=== PATIENT | male | born 1965 | race Caucasian/White ===

== ENCOUNTER 2019-06-19 01:41 | Inpatient (IN) | payer SELFPAY ==
[2019-06-19] MEDS ORDERED: RIVAROXABAN 10 MG TABLET PO ONE (01:51)
[2019-06-19] MEDS ORDERED: DILTIAZEM HCL/D5W 125 MG/125 ML RTUINJ IV PRN (01:51)
--- NOTE | 2019-06-19 01:55 | ER Document Report ---
ED General - General Stated Complaint: HEART PALPITATIONS Time Seen by Provider: 06/19/19 01:50 Primary Care Provider: KALPESH JOHNSON [Primary Care Provider] - Follow up as needed - HPI Notes: Patient is a 54-year-old male that presents to the emergency department for chief complaint of palpitations. Patient states at 1135 he felt his heart skip a few beats and then begin beating very fast. He was at rest when this happened. He was diagnosed with atrial fibrillation in April 2019. He was wearing a Holter monitor this evening and states that he was called by [facility] and the Holter monitor company telling him that his heart rate was too fast and he needed to call EMS. Patient reported some diaphoresis with the heart racing but denied any associated chest pain, shortness of breath or near syncope. EMS administered 25 mg IV Cardizem and patient states he is currently feeling much better. He lives in [facility] and drove in today, he states he was nervous about taking his home Xarelto while driving because previous blood thinners had made him feel tired. He has not had his Xarelto in 2 or 3 days. Patient also states that he did not take his metoprolol 25 mg or flecainide 100 mg this morning like he usually does, he took them around 1140 when his heart started to beat fast. 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 Past Medical History: Atrial fibrillation Past Surgical History: Reviewed in chart Social History: Reviewed Family History: Reviewed and noncontributory for presenting illness Allergies: Reviewed, see documented allergy list. REVIEW OF SYSTEMS: CONSTITUTIONAL : No fever No chills diaphoresis No recent illness EENT: No vision changes No congestion No sore throat CARDIOVASCULAR: No chest pain palpitations RESPIRATORY: No shortness of breath No cough No difficulty breathing GASTROINTESTINAL: No abdominal pain No nausea No vomiting No diarrhea GENITOURINARY: No dysuria No hematuria No difficulty urinating MUSCULOSKELETAL: No back pain No leg pain No arm pain SKIN: No rashes No lesions LYMPHATIC: No swollen, enlarged glands. NEUROLOGICAL: No lightheadedness No headache No weakness No paresthesias PSYCHIATRIC: No anxiety No depression PHYSICAL EXAMINATION: Vital signs reviewed, nursing noted reviewed. GENERAL: Well-appearing, well-nourished and in no acute distress. HEAD: Atraumatic, normocephalic. EYES: Eyes appear normal, extraocular movements intact, sclera anicteric, conjunctiva are normal. ENT: nares patent, oropharynx clear without exudates. Moist mucous membranes. NECK: Normal range of motion, supple without lymphadenopathy LUNGS: Breath sounds clear to auscultation bilaterally and equal. No wheezes rales or rhonchi. HEART: Tachycardic rate and irregularly irregular rhythm without murmurs ABDOMEN: Protuberant, soft, nontender, normoactive bowel sounds. No rebound, guarding, or rigidity. No masses appreciated. EXTREMITIES: Nontender, good range of motion, no pitting or edema. NEUROLOGICAL: No focal neurological deficits. Moves all extremities spontaneou sly Motor and sensory grossly intact on exam. PSYCH: Normal mood, normal affect. SKIN: Warm, Dry, normal turgor, no rashes or lesions noted on exposed skin - Related Data Allergies/Adverse Reactions: No Known Allergies Allergy (Unverified 06/19/19 02:24) Past Medical History - Social History Smoking Status: Never Smoker Family History: Reviewed & Not Pertinent Physical Exam - Vital signs Vitals: Pulse Ox 94 06/19/19 01:49 Course - Re-evaluation Re-evalutation: 06/19/19 01:54 Vitals reviewed. Nursing notes reviewed. Patient is alert and mentating appropriately. His blood pressure is stable. Heart rate currently 127 and he is in atrial fibrillation with RVR. Patient will be given a dose of his home Xarelto to reestablish anticoagulation. Patient had received Cardizem bolus of 25 mg by EMS prior to arrival which did improve his heart rate from a reported 162 his current 127. Patient will be started on IV Cardizem infusion for continued rate control. He has not had any chest pain to suggest acute ACS. 06/19/19 03:02 Patient's blood work is unremarkable. His troponin is negative. He is being titrated up on the Cardizem currently for further rate control. His heart rate right now is 115. Patient will be admitted to the hospital for further cardiac care. His case was discussed with Dr. Spear who accepts admission. Laboratory 06/19/19 06/19/19 06/19/19 02:15 02:15 02:15 WBC 5.8 RBC 4.32 L Hgb 13.7 Hct 40.2 MCV 93 MCH 31.7 MCHC 34.1 RDW 13.5 Plt Count 235 Seg Neutrophils % 67.9 Lymphocytes % 21.2 Monocytes % 8.6 Eosinophils % 1.7 Basophils % 0.6 Absolute Neutrophils 3.9 Absolute Lymphocytes 1.2 Absolute Monocytes 0.5 Absolute Eosinophils 0.1 Absolute Basophils 0.0 Sodium 140.9 Potassium 4.0 Chloride 106 Carbon Dioxide 25 Anion Gap 10 BUN 18 Creatinine 0.79 Est GFR ( Amer) > 60 Est GFR (Non-Af Amer) > 60 Glucose 143 H Calcium 9.5 Total Bilirubin 0.4 Direct Bilirubin 0.4 Neonat Total Bilirubin Not Reportable Neonat Direct Bilirubin Not Reportable Neonat Indirect Bili Not Reportable AST 156 H ALT 175 Alkaline Phosphatase 55 Troponin I < 0.012 Total Protein 7.4 Albumin 4.7 Chest X-Ray 06/19/19 01:50 IMPRESSION: No evidence of acute intrathoracic disease. - Vital Signs Vital signs: Temp Pulse Resp BP Pulse Ox 98.9 F 18 113/83 95 06/19/19 02:08 06/19/19 03:00 06/19/19 02:51 06/19/19 02:41 - Laboratory Result Diagrams: 06/19/19 02:15 06/19/19 02:15 Laboratory results interpreted by me: 06/19/19 06/19/19 02:15 02:15 RBC 4.32 L Glucose 143 H AST 156 H - EKG Interpretation by Me Additional EKG results interpreted by me: 06/19/19 02:11 Interpreted by myself 0208: Atrial fibrillation, rate 122, QT prolongation, QTC 530, no STEMI Critical Care Note - Critical Care Note Total time excluding time spent on procedures (mins): 35 Comments: Critical care time 35 exclusive from separate billable procedures for a patient requiring complex medical decision making, and high potential for clinical deterioration. Time spent obtaining history from patient or surrogate, discussions with consultants, development of treatment plan with patient or surrogate, evaluation of patient's response to treatment, examination of patient, ordering and performing treatments and interventions, ordering and review of laboratory studies, re-evaluation of patient's condition, ordering and review of radiographic studies and review of old charts Discharge - Discharge Clinical Impression: Atrial fibrillation with RVR Condition: Stable Disposition: ADMITTED INPATIENT Admitting Provider: Beatris (Hospitalist) Unit Admitted: IMCU Referrals: LOCALMD,NO [Primary Care Provider] - Follow up as needed
[2019-06-19] MEDS ORDERED: DILTIAZEM HCL/D5W 125 MG/125 ML RTUINJ IV ONE (02:13)
[2019-06-19] MEDS ORDERED: RIVAROXABAN 10 MG TABLET ONE (02:14)
[2019-06-19 02:26] LABS: ABSOLUTE EOSINOPHILS # (AUTO) 0.1 10^3/uL (0.0-0.6); ABSOLUTE LYMPHOCYTES (AUTO) 1.2 10^3/uL (0.5-4.7); ABSOLUTE MONOCYTES (AUTO) 0.5 10^3/uL (0.1-1.4); ABSOLUTE NEUT (AUTO) 3.9 10^3/uL (1.7-8.2); BASOPHILS % (AUTO) 0.6 % (0-2); EOSINOPHILS % (AUTO) 1.7 % (0-6); HEMATOCRIT 40.2 % (37.9-51.0); HEMOGLOBIN 13.7 g/dL (13.5-17.0); LYMPHOCYTES % (AUTO) 21.2 % (13-45); MEAN CORPUSCULAR HEMOGLOBIN 31.7 pg (27.0-33.4); MEAN CORPUSCULAR HGB CONC 34.1 g/dL (32.0-36.0); MEAN CORPUSCULAR VOLUME 93 fl (80-97); MONOCYTES % (AUTO) 8.6 % (3-13); PLATELET COUNT 235 10^3/uL (150-450); RED BLOOD COUNT 4.32 10^6/uL (4.35-5.55); RED CELL DISTRIBUTION WIDTH 13.5 % (11.5-14.0); SEGMENTED NEUTROPHILS % (AUTO) 67.9 % (42-78); TOTAL CELLS COUNTED % (AUTO) 100 %; WHITE BLOOD COUNT 5.8 10^3/uL (4.0-10.5)
[2019-06-19 02:41] LABS: ALBUMIN 4.7 g/dL (3.5-5.0); ALKALINE PHOSPHATASE 55 U/L (38-126); ANION GAP 10 (5-19); ASPARTATE AMINO TRANSFERASE 156 U/L (17-59); BILIRUBIN,DIRECT 0.4 mg/dL (0.0-0.4); BILIRUBIN,TOTAL 0.4 mg/dL (0.2-1.3); BLOOD UREA NITROGEN 18 mg/dL (7-20); CALCIUM 9.5 mg/dL (8.4-10.2); CARBON DIOXIDE 25 mmol/L (22-30); CHLORIDE 106 mmol/L (98-107); GLUCOSE 143 mg/dL (75-110); TOTAL PROTEIN 7.4 g/dL (6.3-8.2)
--- NOTE | 2019-06-19 02:55 | RADIOLOGY REPORT (SQ) ---
EXAM DESCRIPTION: X-ray single view chest. CLINICAL HISTORY: 54 years Male, palpitations COMPARISON: None. TECHNIQUE: Single portable x-ray view of the chest performed on 06/19/2019 at 2:29 AM FINDINGS: The lungs are well expanded and are clear. There is no evidence of a pneumothorax. The cardiac silhouette is normal in size and configuration. The mediastinal contours are normal. No acute osseous abnormality is identified. No focal soft tissue abnormalities are seen. Lines and tubes: None. IMPRESSION: No evidence of acute intrathoracic disease.
[2019-06-19] MEDS ORDERED: MAG HYDROX/AL HYDROX/SIMETH SUSP 30 ML UDCUP PO PRN (03:19)
[2019-06-19] MEDS ORDERED: MAGNESIUM HYDROXIDE SUSP 30 ML UDCUP PO PRN (03:19)
[2019-06-19] MEDS ORDERED: ONDANSETRON HCL INJ/PF 4 MG/2 ML SDV IV PRN (03:19)
[2019-06-19] MEDS ORDERED: TEMAZEPAM 15 MG CAPSULE PO PRN (03:19)
[2019-06-19] MEDS ORDERED: NALBUPHINE HCL INJ 10 MG/1 ML AMPULE IV PRN (03:25)
[2019-06-19] MEDS ORDERED: ACETAMINOPHEN 325 MG TABLET PO PRN (03:25)
[2019-06-19] MEDS ORDERED: PROMETHAZINE HCL INJ 25 MG/1 ML VIAL IV PRN (03:28)
[2019-06-19] MEDS: DILTIAZEM HCL/D5W 125 MG/125 ML RTUINJ IV PRN ×3 (05:54→17:24)
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
[2019-06-19 07:43] LABS: FREE T3 3.71 pg/mL (2.77-5.27); FREE T4 (FREE THYROXINE) 0.95 ng/dL (0.78-2.19)
[2019-06-19 07:57] LABS: THYROID STIMULATING HORMONE 2.67 uIU/mL (0.47-4.68)
[2019-06-19] MEDS: DOCUSATE SODIUM 100 MG CAPSULE PO SCH ×3 (09:24→17:12)
[2019-06-19] MEDS: FAMOTIDINE 20 MG TABLET PO SCH ×3 (09:24→22:37)
[2019-06-19] MEDS: FLECAINIDE ACETATE 100 MG TABLET PO SCH ×2 (09:33→22:39)
[2019-06-19] MEDS ORDERED: METOPROLOL SUCCINATE 50 MG TAB.SR.24H PO SCH ×2 (10:00)
[2019-06-19 10:24] LABS: CREATINE KINASE MB 0.76 ng/mL (<4.55)
[2019-06-19 10:31] LABS: TROPONIN I < 0.012 ng/mL
[2019-06-19 16:08] LABS: CREATINE KINASE MB 0.78 ng/mL (<4.55)
[2019-06-19 16:11] LABS: TROPONIN I < 0.012 ng/mL
[2019-06-19] MEDS ORDERED: RIVAROXABAN 10 MG TABLET PO SCH (17:00)
--- NOTE | 2019-06-19 17:36 | EKG REPORT ---
SEVERITY:- ABNORMAL ECG - ATRIAL FLUTTER WITH 2:1 AV BLOCK PROLONGED QT INTERVAL : Confirmed by: Amara Butt MD 19-Jun-2019 17:35:26
--- NOTE | 2019-06-19 17:36 | EKG REPORT ---
SEVERITY:- ABNORMAL ECG - ATRIAL FIBRILLATION BORDERLINE PROLONGED QT INTERVAL : Confirmed by: Amara Butt MD 19-Jun-2019 17:35:18
[2019-06-19] MEDS ORDERED: METOPROLOL TARTRATE 25 MG TABLET PO ONE (19:30)
[2019-06-19 21:26] LABS: CREATINE KINASE MB 0.52 ng/mL (<4.55)
[2019-06-19 21:32] LABS: TROPONIN I < 0.012 ng/mL
[2019-06-20 07:10] LABS: HEMATOCRIT 46.8 % (37.9-51.0); MEAN CORPUSCULAR HEMOGLOBIN 31.9 pg (27.0-33.4); MEAN CORPUSCULAR HGB CONC 34.4 g/dL (32.0-36.0); MEAN CORPUSCULAR VOLUME 93 fl (80-97); PLATELET COUNT 279 10^3/uL (150-450); RED BLOOD COUNT 5.04 10^6/uL (4.35-5.55); RED CELL DISTRIBUTION WIDTH 13.4 % (11.5-14.0); WHITE BLOOD COUNT 10.1 10^3/uL (4.0-10.5)
[2019-06-20 07:17] LABS: HEMOGLOBIN 16.1 g/dL (13.5-17.0)
[2019-06-20 07:20] LABS: ANION GAP 12 (5-19); BLOOD UREA NITROGEN 15 mg/dL (7-20); CARBON DIOXIDE 24 mmol/L (22-30); CHLORIDE 104 mmol/L (98-107); GLUCOSE 129 mg/dL (75-110); POTASSIUM 4.5 mmol/L (3.6-5.0)
[2019-06-20] MEDS: DOCUSATE SODIUM 100 MG CAPSULE PO SCH (10:02)
[2019-06-20] MEDS: FAMOTIDINE 20 MG TABLET PO SCH (10:02)
[2019-06-20 10:07] VITALS: BP 130/82
[2019-06-20] MEDS: FLECAINIDE ACETATE 100 MG TABLET PO SCH (10:12)
--- NOTE | 2019-06-20 10:45 | PDOC DISCHARGE SUMMARY ---
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 fib as result of him not taking his medication (2) Chronic anticoagulation Is this a current diagnosis for this admission?: Yes Summary: Patient was supposed to be taking Xarelto 20 mg a day prior to admission patient was told to continue to do this. - Additional Information Resuscitation Status: Full Code Discharge Diet: Regular Discharge Activity: Balance Activity w/Rest, Bedrest, Energy Conservation, No Lifting Over 10 Pounds, No Lifting/Push/Pulling Home Medications: Flecainide Acetate [Tambocor 100 mg Tablet] 100 mg PO BID 06/19/19 Metoprolol Tartrate [Lopressor 25 mg Tablet] 25 mg PO Q12 06/19/19 Rivaroxaban [Xarelto 10 mg Tablet] 20 mg PO DAILY 06/19/19 Flecainide Acetate [Tambocor 100 mg Tablet] 100 mg PO Q12 tablet 06/20/19 Rivaroxaban [Xarelto 10 mg Tablet] 20 mg PO WSUPPER tablet 06/20/19 History of Present Illness Patient complains of: Palpitations History of Present Illness: CHAS HUFFMAN is a 54 year old male Hospital Course Hospital Course: Patient was admitted to the hospital through the emergency room on 821 with A. fib and RVR. On arrival it looks like his heart rate was 127 ED however EMS recorded 162 arrival. 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 ABSENT: rales, rhonchi, wheezes Cardiovascular exam: PRESENT: tachycardia Rectal exam: PRESENT: deferred Neurological exam: PRESENT: alert, awake, oriented to person, oriented to place, oriented to time, oriented to situation, CN II-XII grossly intact. ABSENT: motor sensory deficit Psychiatric exam: PRESENT: appropriate affect, normal mood. ABSENT: homicidal ideation, suicidal ideation Results Laboratory Results: 06/20/19 06:13 06/20/19 06:13 06/20/19 06/20/19 06:13 06:13 WBC 10.1 RBC 5.04 Hgb 16.1 D Hct 46.8 MCV 93 MCH 31.9 MCHC 34.4 RDW 13.4 Plt Count 279 Sodium 140.4 Potassium 4.5 Chloride 104 Carbon Dioxide 24 Anion Gap 12 BUN 15 Creatinine 0.74 Est GFR ( Amer) > 60 Glucose 129 H Calcium 10.0 Magnesium 2.3 06/19/19 06/19/19 06/19/19 02:15 09:05 09:05 Creatine Kinase 85 CK-MB (CK-2) 0.76 Troponin I < 0.012 < 0.012 06/19/19 06/19/19 06/19/19 15:15 15:15 20:29 Creatine Kinase 75 71 CK-MB (CK-2) 0.78 Troponin I < 0.012 06/19/19 20:29 Creatine Kinase CK-MB (CK-2) 0.52 Troponin I < 0.012 Impressions: Chest X-Ray 06/19/19 01:50 IMPRESSION: No evidence of acute intrathoracic disease. Qualifiers - * PATIENT BEING DISCHARGED WITH ANY OF THE FOLLOWING DIAGNOSIS: No Acute Heart Failure - Is this a Heart Failure Patient?: No Plan Time Spent: Greater than 30 Minutes - Patient has appointment scheduled next with his rn school. He will continue his flecainide at his preadmission dosage, however increase his metoprolol tartrate 50 mg twice daily, holding if pulse is less than 60 [place] the [place] of rest and relaxation. Patient's who is a nurse was in the room at the time of discharge patient is medically stable for discharge with a heart rate of approximately 50 and an asymptomatic
--- NOTE | 2019-06-20 17:11 | Progress Note ---
Provider Note Provider Note: Patient was called on the day of discharge at approximately 1700 hrs. I spoke to patient's who is a nurse and told her that they should check his pulse prior to taking the metoprolol, and if it was less than 60 they should hold off on that dose. Would prevent him from becoming too bradycardic. I also told him that they should be keeping a log or journal about the flecainide and metoprolol so that when he sees the pastoral worker next week on he can bring that in and they can discuss his medications at this might also prevent him from forgetting to take his doses patient's seems satisfied.
== END 2019-06-20 10:44 | disposition home or self-care (01) | DRG 310 ==
LOC: ER 01:41 → EH 03:05 → 3W 14:00
PROVIDERS: ADMIT Emergency Medicine; ATTEND Emergency Medicine
DX: I48.91 Unspecified atrial fibrillation (principal); Z79.01 Long term (current) use of anticoagulants
CPT/HCPCS: 36415; 71045; 80048; 80053; 82550; 82553; 83036; 83735; 84439; 84443; 84481; 84484; 85025; 85027; 93005; 93010; 96365; 99285; J3490